=== PATIENT | male | born 1975 | race Caucasian/White ===

== ENCOUNTER 2017-11-19 01:30 | Emergency (ER) | payer OTHER, SELFPAY ==
[2017-11-19 01:34] VITALS: BP 161/110; PULSE 86; RESP 14; TEMP 36.4; O2SAT 98; BMI 36.9
--- NOTE | 2017-11-19 01:46 | ED.RN ---
NO OLD EKG'S IN MUSE
--- NOTE | 2017-11-19 01:53 | RAD_ITS ---
STUDY: X-RAY CHEST REASON FOR EXAM: Male, 42 years old. Palpitations for 2 days. TECHNIQUE: AP portable chest. COMPARISON: None. FINDINGS: The lungs are clear and expanded. There is no demonstrated pleural abnormality. Normal size heart. Normal mediastinum and carmenza. Normal visualized pulmonary arteries. Normal visualized aortic arch and descending thoracic aorta. Normal visualized thoracic spine. Normal visualized ribs, clavicles, and shoulders. There is no demonstrated abnormality of the visualized soft tissue structures of the upper abdomen. RAD/Chest 1 View (Portable) IMPRESSION: Normal x-ray examination of the chest. Electronically Signed: Jose David Wilkins MD at 2:14 EDT , Service support ,
[2017-11-19 01:55] LABS: Absolute Neutrophil Count 4.7 X10^3/uL (2.0-7.7); Basophil# 0.02 X10^3/uL; Basophil% 0.3 % (0-1); Eosinophil# 0.15 X10^3/uL; Hematocrit 46.9 % (40-54); Hemoglobin 17.1 g/dl (13.0-16.5); Lymphocyte % 25.6 % (19-41); Mean Corp Hgb Conc 36.5 g/gl (32-36); Mean Corpuscular Hgb 31.3 pg (27.0-32.0); Mean Corpuscular Volume 85.7 fL (80-94); Mean Platelet Vol. 9.7 fl (6.2-12.0); Monocyte# 0.64 X10^3/uL; Monocyte% 8.6 % (0-10); Neutrophil % 63.4 % (47-70); Platelet Count 276 K/mm3 (150-450); RBC Distribution Width CV 12.4 % (11.6-14.6); RBC Distribution Width SD 38.6 fl (35.1-43.9); Red Blood Count 5.47 M/mm3 (4.6-6.2); White Blood Count 7.4 K/mm3 (4.4-11.0)
[2017-11-19 01:57] LABS: POSITIVE COUNT NO; POSITIVE DIFFERENTIAL NO; POSITIVE MORPHOLOGY NO
[2017-11-19] MEDS: 0.9% Normal Saline 1,000 ML 150 ML IV (02:09)
[2017-11-19 02:14] LABS: D-Dimer Quantitative (DVT/PE) < 0.27 FEU/ug/m (0.27-0.49)
[2017-11-19 02:15] LABS: Anion Gap 6 (5-15); BUN 13 mg/dL (7-18); BUN/Creat Ratio 8.3 RATIO (10-20); Calcium,Total 9.1 mg/dL (8.5-10.1); Chloride 105 mmol/L (98-107); Creatinine, Serum 1.56 mg/dL (0.70-1.30); EST Glomerular Filtration Rate 52 mL/min (>60); Est Glom Filt Rate - Afr Amer 64 mL/min (>60); Estimated Creatinine Clearance 69.09 ml/min; Glucose 110 mg/dL (74-106); Magnesium 2.4 mg/dL (1.6-2.6); Potassium 3.4 mmol/L (3.5-5.1); Sodium Level 141 mmol/L (136-145)
--- NOTE | 2017-11-19 02:26 | ED.VISSUMM ---
- ER Visit Summary Date of Service: 11/19/17 Chief Complaint: [Palpitations] History of Present Illness: The patient is a 42 M [presents the emergency department complaint of palpitations that started initially 2 days ago. Patient states that 2 days ago had palpitations that lasted about 10 minutes or so and then resolved. Tonight around 1 AM he just lay down in bed when he started feeling palpitations in the center of his chest. Patient denies any exertional dyspnea. Patient denies any chest pain with activity. Patient is concerned because his father had an [place] in his 60s. Patient denies any recent illness. Patient denies any new medications. Patient does take chronic calcium and magnesium therapy. Patient denies recent travel or surgery.] Physical Examination: [HEENT-PERRLA, EOMI. Cranial nerves II through XII grossly intact. TMs clear. Mucous membranes moist. No adenopathy. Cardiovascular-regular rate and rhythm without murmur. Patient has occasional ectopy noted. Lungs-clear to auscultation, chest wall stable without crepitus or subcu emphysema Abdomen-normoactive bowel sounds, soft, nontender, no rebound or rigidity, no peritoneal signs. Extremities-intact ?4, normal range of motion, normal pulses, atraumatic] Test Results: [EKG obtained on arrival shows sinus rhythm with a rate of 89 bpm with occasional junctional escape beats noted. Ventricular rate was 89 bpm. CBC with differential was normal. Chemistries unremarkable other than a slightly depressed potassium 3.4. Magnesium is 2.4. D-dimer was less than 0.27. Troponin was less than 0.015. Chest x-ray was unremarkable.] Emergency Department Course and Treatment: [Patient received potassium chloride 40 mEq p.o. I did discuss case with Dr. Magdaleno Bird who asked that we apply 24-hour Holter monitor on patient. Patient to follow-up with Dr. Magdaleno Bird's office.] Treatment Plan: [Holter monitor and follow-up with Dr. Magdaleno Bird] Disposition: [Discharged home in stable condition] Impression: [Palpitations] This note was generated with [employer] software. It may contain incorrect words, spelling, and punctuation that were not noted in review of the chart prior to signing ED Disposition - Plan for ED Patient: Chief Complaint: Palpitations Referrals: Carmela Mayes PA-C [Primary Care Provider] -
--- NOTE | 2017-11-19 02:31 | ED.DCSUM_ITS ---
- ER Visit Summary Date of Service: 11/19/17 Chief Complaint: [Palpitations] History of Present Illness: The patient is a 42 M [presents the emergency department complaint of palpitations that started initially 2 days ago. Patient states that 2 days ago had palpitations that lasted about 10 minutes or so and then resolved. Tonight around 1 AM he just lay down in bed when he started feeling palpitations in the center of his chest. Patient denies any exertional dyspnea. Patient denies any chest pain with activity. Patient is concerned because his father had an [place] in his 60s. Patient denies any recent illness. Patient denies any new medications. Patient does take chronic calcium and magnesium therapy. Patient denies recent travel or surgery.] Physical Examination: [HEENT-PERRLA, EOMI. Cranial nerves II through XII grossly intact. TMs clear. Mucous membranes moist. No adenopathy. Cardiovascular-regular rate and rhythm without murmur. Patient has occasional ectopy noted. Lungs-clear to auscultation, chest wall stable without crepitus or subcu emphysema Abdomen-normoactive bowel sounds, soft, nontender, no rebound or rigidity, no peritoneal signs. Extremities-intact ?4, normal range of motion, normal pulses, atraumatic] Test Results: [EKG obtained on arrival shows sinus rhythm with a rate of 89 bpm with occasional junctional escape beats noted. Ventricular rate was 89 bpm. CBC with differential was normal. Chemistries unremarkable other than a slightly depressed potassium 3.4. Magnesium is 2.4. D-dimer was less than 0.27. Troponin was less than 0.015. Chest x-ray was unremarkable.] Emergency Department Course and Treatment: [Patient received potassium chloride 40 mEq p.o. I did discuss case with Dr. Magdaleno Bird who asked that we apply 24- hour Holter monitor on patient. Patient to follow-up with Dr. Magdaleno Bird's office.] Treatment Plan: [Holter monitor and follow-up with Dr. Magdaleno Bird] Disposition: [Discharged home in stable condition] Impression: [Palpitations] This note was generated with [employer] software. It may contain incorrect words, spelling, and punctuation that were not noted in review of the chart prior to signing ED Disposition - Plan for ED Patient: Chief Complaint: Palpitations Referrals: Carmela Mayes PA-C [Primary Care Provider] -
--- NOTE | 2017-11-19 02:31 | ED.DEP ---
ED Disposition - Plan for ED Patient: Chief Complaint: Palpitations Instructions: ED Palpitations Referrals: Carmela Mayes PA-C [Primary Care Provider] - Magdaleno Bird MD [STAFF PHYSICIAN] - 3-5 Days
[2017-11-19 02:34] VITALS: BP 148/93; PULSE 107; RESP 20; O2SAT 96
== END 2017-11-19 03:18 | disposition home or self-care (01) ==
PROVIDERS: Emergency Provider Emergency Medicine; Family Provider Family Medicine; PCP Family Medicine
DX: R00.2 Palpitations (principal); I49.3 Ventricular premature depolarization; F17.220 Nicotine dependence, chewing tobacco, uncomplicated
CPT/HCPCS: 71045; 80048; 83735; 84484; 85025; 85379; 93005; 93225; 96360; 99285; J7030; A4216

== ENCOUNTER → 2017-11-19 02:35 | Outpatient (CLI) | payer OTHER, SELFPAY | PROVIDERS: Family Provider Family Medicine; PCP Family Medicine; Visit Provider Internal Medicine Cardiovascular Disease | DX: R00.2 Palpitations (principal) | CPT/HCPCS: 93225 ==

== ENCOUNTER → 2017-12-24 07:47 | Outpatient (CLI) | payer OTHER, SELFPAY | PROVIDERS: Family Provider Family Medicine; PCP Family Medicine; Visit Provider Internal Medicine Cardiovascular Disease | DX: I47.1 Supraventricular tachycardia (principal) | CPT/HCPCS: 93306; Q9957; A4216 ==

== ENCOUNTER → 2018-01-27 15:00 | Outpatient (CLI) | payer OTHER, SELFPAY ==
[2018-01-27 15:05] LABS: Bacteria 0 SEEN /hpf (None Seen); Mucous, Urine 0 SEEN /hpf (<or=2+); Red Blood Cells-Urine 0 SEEN /hpf (0-5); White Blood Cells 0 SEEN /hpf (0-5)
[2018-01-27 16:40] LABS: Color, Urine Yellow (Yellow); Glucose, Dipstick Normal (Normal); Ketone-Dipstick Negative (Negative); Leukocyte Esterase-Dipstick Negative /ul (Negative); Nitrite-Dipstick Negative (Negative); Occult Blood-Urine Negative /ul (Negative); Protein-Dipstick Negative (Negative); Urine Bilirubin Dipstick Negative (Negative); Urine Clarity Sl. Cloudy (Clear); Urine Urobilinogen Normal (Normal); Urine pH 6.5 (5.0 - 8.0)
[2018-01-27 16:48] LABS: Squamous Epithelial Cells - UA 0-5 SEEN /hpf (0-5)
[2018-01-27 17:16] LABS: Anion Gap 8 (5-15); BUN 16 mg/dL (7-18); BUN/Creat Ratio 12.8 RATIO (10-20); Chloride 105 mmol/L (98-107); Creatinine, Serum 1.25 mg/dL (0.70-1.30); EST Glomerular Filtration Rate 68 mL/min (>60); Est Glom Filt Rate - Afr Amer 82 mL/min (>60); Glucose 84 mg/dL (74-106); Magnesium 2.2 mg/dL (1.6-2.6); Potassium 4.2 mmol/L (3.5-5.1); Sodium Level 141 mmol/L (136-145); Thyroid Stim Hormone (TSH) 1.39 uIU/mL (0.358-3.74)
== END ==
PROVIDERS: Family Provider Family Medicine; PCP Family Medicine; Visit Provider Internal Medicine Cardiovascular Disease
DX: I47.1 Supraventricular tachycardia (principal)
CPT/HCPCS: 36415; 80048; 81001; 83735; 84443

== ENCOUNTER 2019-06-28 11:21 | Emergency (ER) | payer OTHER, SELFPAY ==
[2018-08-07 15:00] VITALS: BMI 36.8
[2019-06-28 11:22] VITALS: BP 160/85; PULSE 111; RESP 20; TEMP 37.5; O2SAT 93; O2SAT 98; BMI 33.9
--- NOTE | 2019-06-28 11:43 | RAD_ITS ---
STUDY: X-RAY CHEST REASON FOR EXAM: Male, 44 years old. Chest pain TECHNIQUE: PA and lateral views of the chest COMPARISON: X-ray chest November 19, 2017 FINDINGS: There is a right middle lobe infiltrate. The left lung is clear. There is a trace right effusion. The left pleural space is clear. There is no pneumothorax. The heart is normal in size. The visualized osseous structures are within normal limits. RAD/Chest PA and Lateral IMPRESSION: Right middle lobe infiltrate. Trace right effusion. Electronically Signed: Evan Masters, at 12:11 EST Tel , Service support ,
--- NOTE | 2019-06-28 11:45 | ED.VISSUMM ---
- ER Visit Summary Date of Service: 06/28/19 Chief Complaint: Cough with fever and chills and right-sided chest pain History of Present Illness: The patient is a 44 M no significant past medical history. Prior tonsillectomy. Says since Saturday about 11 days ago he has had cough fever and chills that has not gotten better and is actually gotten worse. Initially thought he had a viral syndrome. But since has been improving he is developed more right-sided pleuritic chest pain he is concerned he may have pneumonia. Denies any hemoptysis. No recent travel or surgery. No leg pain or swelling. No cardiac history. Physical Examination: Middle-aged male no acute distress vital signs stable pulse ox 93% on room air no signs hypoxia. H EENT moist with membranes. Neck nontender no lymphadenopathy. Lungs he has rhonchi on the right and is splinting with deep breathing on the right due to pain. Heart regular rhythm rate about 110 no murmur. Chest wall nontender. No ecchymosis or bruising. No subcu air or crepitance. Abdomen soft nontender normal bowel sounds no peritoneal signs. Extremities moves all 4. Calves nontender no edema no cords. Back nontender. Skin no rashes. Neurologically is awake and alert with no focal motor deficits. Test Results: This x-ray AP and lateral views read by myself shows an obvious right lower lobe pneumonia. I discussed the film with the patient and his . Emergency Department Course and Treatment: Clinically the patient has a right-sided pneumonia. Chest x-ray will be obtained. He does not look septic or toxic. He did not want anything for pain. Started on Levaquin p.o. in emergency department. He did not want to be admitted. 5 vital signs he can be treated as an outpatient and the way looks clinically. Treatment Plan: Levaquin daily for 10 days. Tylenol Motrin for pain and fever. Plenty of fluids and rest. Off work the next 4 days. Return if feeling worse. Follow-up with his primary if not improving. Disposition: Discharge Impression: Right lower lobe pneumonia This note was generated with [employer] dictation software. It may contain incorrect words, spelling, and punctuation that were not noted in review of the chart prior to signing ED Disposition - Plan for ED Patient: Referrals: Carmela Mayes PA-C [Primary Care Provider] -
--- NOTE | 2019-06-28 12:23 | ED.DEP ---
ED Disposition - Plan for ED Patient: Disposition: Home or Assisted Living Instructions: PNEUMONIA (Adult) Prescriptions: levoFLOXacin tablet [Levaquin tablet] 750 mg PO DAILY #9 tab Prescription Printed Albuterol Aerosols [Ventolin Aerosols] 2.5 mg INHALATION Q2H PRN PRN 7 Days #20 vial.neb. PRN Reason: Wheezing Prescription Printed Referrals: Carmela Mayes PA-C [Primary Care Provider] - 1 Week if not improving Additional Instructions: Off work next several days. Plenty of fluids and rest. Tylenol and Motrin for pain and fever. Follow-up with not improving return if worse. Levaquin 1 pill a day for the next 10 days.
[2019-06-28 12:28] VITALS: PULSE 113; RESP 18; O2SAT 96
[2019-06-28] MEDS: levoFLOXacin 750 MG Tablet PO (12:28)
== END 2019-06-28 12:34 | disposition home or self-care (01) ==
PROVIDERS: Emergency Provider Emergency Medicine; PCP Family Medicine
DX: J18.9 Pneumonia, unspecified organism (principal); F17.220 Nicotine dependence, chewing tobacco, uncomplicated; Z79.899 Other long term (current) drug therapy
CPT/HCPCS: 71046; 99282